=== PATIENT | female | born 1995 | race Two or more races ===

== ENCOUNTER 2023-09-13 20:13 | Emergency (ER) | payer OTHER ==
[~2023-09-13] VITALS: Ht 149.9 cm; Wt 60.8 kg
[2023-09-13 21:29] LABS: HEMATOCRIT 36.7 % (36.0-45.00); HEMOGLOBIN 12.3 g/dL (12.0-15.00); MEAN CELL VOLUME 89.7 fL (80.00-100.00); MEAN CORPUSCULAR HGB CONC 33.5 g/dl (32.0-36.0); PLATELET COUNT 236 K/uL (150-450); RED BLOOD COUNT 4.09 M/uL (4.00-6.00); RED CELL DISTRIBUTION WIDTH 12.8 % (11.5-14.5)
== END 2023-09-13 22:04 | disposition home or self-care (01) ==
LOC: ER 20:13
PROVIDERS: General Practice
DX: J10.1 Influenza due to other identified influenza virus with other respiratory manifestations (principal); Z20.822 Contact with and (suspected) exposure to COVID-19

== ENCOUNTER 2023-11-10 10:56 | Emergency (ER) | payer OTHER ==
[~2023-11-10] VITALS: Ht 149.9 cm; Wt 60.8 kg
[2023-11-10 12:53] LABS: URINE APPEARANCE Cloudy; URINE BILIRRUBIN Negative (NEGATIVE); URINE BLOOD Large; URINE COLOR Yellow; URINE GLUCOSE Negative (NEGATIVE); URINE LEUKOCYTE Trace; URINE NITRATE Negative; URINE PROTEIN Trace (NEGATIVE)
[2023-11-10 12:54] LABS: HEMATOCRIT 38.2 % (36.0-45.00); HEMOGLOBIN 13.1 g/dL (12.0-15.00); MEAN CELL VOLUME 87.9 fL (80.00-100.00); MEAN CORPUSCULAR HEMOGLOBIN 30.2 pg (27.00-32.0); MEAN CORPUSCULAR HGB CONC 34.4 g/dl (32.0-36.0); PLATELET COUNT 213 K/uL (150-450); RED BLOOD COUNT 4.35 M/uL (4.00-6.00); RED CELL DISTRIBUTION WIDTH 13.5 % (11.5-14.5)
[2023-11-10 12:57] LABS: URINE BACTERIA 2025.9 uL (0.0-1933); URINE EPITHELIAL CELLS 107.9 uL (0.0-38.8); URINE RBC 1608.1 uL (0.0-20.8); URINE WBC 60.1 uL (0.0-23.2)
[2023-11-10 13:35] LABS: ANION GAP 8 (10.0-20.0); BLOOD UREA NITROGEN 15 mg/dL (7-18); BUN CREA RATIO 24 (7.0-25.0); CALCIUM 9.3 mg/dL (8.5-10.1); CARBON DIOXIDE 29 mEq/L (21-32); CHLORIDE 105 mmol/L (98-107); CREATININE SERUM 0.63 mg/dL (0.55-1.02); GFR 110.95; GLUCOSE FASTING 96 mg/dL (65-100); OSMOLALITY SERUM 276 MOSM/KG (275-295); POTASSIUM 3.71 mEq/L (3.5-5.1); SODIUM 138 mmol/L (136-145)
[2023-11-10 13:45] LABS: HCG QUANTITATIVE < 1 mUI/mL (1-3)
== END 2023-11-10 18:32 | disposition home or self-care (01) ==
LOC: ER 10:57
PROVIDERS: General Practice
DX: N39.0 Urinary tract infection, site not specified (principal); R05.9 Cough, unspecified; Z91.013 Allergy to seafood; Z20.822 Contact with and (suspected) exposure to COVID-19